=== PATIENT | female | born 1955 | race African-American/Black ===

== ENCOUNTER 2017-10-22 18:14 | Emergency (ER) | payer SELFPAY ==
[~2017-10-22] VITALS: Ht 157.5 cm; Wt 55.0 kg
[~2017-10-22 18:14] MED LIST: DICL75 PO; GLUCTAB OR; TRAM50 PO; VASE1025 PO
[2017-10-22 18:16] VITALS: BP 225/129; PULSE 97; RESP 18; TEMP 98.3; O2SAT 99
--- NOTE | 2017-10-22 18:29 | PD ---
HPI Chief Complaint: Allergic/Adverse Reaction Time Seen by Provider: 18:28 Travel History International Travel<30 days: No Contact w/Intl Traveler<30days: No Traveled to known affect area: No History of Present Illness HPI 62-year-old female came to the emergency room with history of swelling of her lips that started 2 hours ago. Patient says that she has had something like this in the past but it won't go away. This time it was getting worse and hence she came to the emergency room. Patient is not having any respiratory distress. Vital signs otherwise stable. Patient is on this and a pill for blood pressure. Patient was hypertensive in triage. [facility] Past Medical History Narrative Medical List of her past medical, surgical, social and family history is reviewed from the nursing note. Diabetes: Yes Hypertension: Yes Social History Tobacco Use: Yes Allergies-Medications (Allergen,Severity, Reaction): Coded Allergies: penicillin G (Verified Allergy, Severe, rash, 10/22/17) Comments List of her allergies reviewed from the nursing note. Reported Meds & Prescriptions Reported Meds & Active Scripts Active Prednisone 20 Mg Tab 40 Mg PO DAILY Take 40 mg (2 tablets) daily for 5 days Reported Metformin (Metformin HCl) 500 Mg Tab 500 Mg PO BIDPC Lisinopril 20 Mg Tab 20 Mg PO DAILY Narrative Medication List of her home medications reviewed from the nursing note. Review of Systems Except as stated in HPI: all other systems reviewed are Neg Physical Exam Narrative GENERAL: Awake, alert, no obvious distress SKIN: Focused skin assessment warm/dry. HEAD: Atraumatic. Normocephalic. EYES: Pupils equal and round. No scleral icterus. No injection or drainage. ENT: No nasal bleeding or discharge. Mucous membranes pink and moist. Upper lip is swollen/angioedema. Tongue and pharynx appears to be normal NECK: Trachea midline. No JVD. CARDIOVASCULAR: Regular rate and rhythm. No murmur appreciated. RESPIRATORY: No accessory muscle use. Clear to auscultation. Breath sounds equal bilaterally. GASTROINTESTINAL: Abdomen soft, non-tender, nondistended. Hepatic and splenic margins not palpable. MUSCULOSKELETAL: No obvious deformities. No clubbing. No cyanosis. No edema. NEUROLOGICAL: Awake and alert. No obvious cranial nerve deficits. Motor grossly within normal limits. Normal speech. PSYCHIATRIC: Appropriate mood and affect; insight and judgment normal. Data Data Last Documented VS Vital Signs Date Time Temp Pulse Resp B/P (MAP) Pulse Ox O2 Delivery O2 Flow Rate FiO2 10/22/17 23:07 10/22/17 18:55 94 17 99 Room Air 10/22/17 18:16 98.3 Orders Orders Ecg Monitoring (10/22/17 18:32) Iv Access Insert/Monitor (10/22/17 18:32) Oximetry (10/22/17 18:32) Diphenhydramine Inj (Benadryl Inj) (10/22/17 18:45) Methylprednisolone So Succ Inj (Solumedr (10/22/17 18:45) Famotidine Inj (Pepcid Inj) (10/22/17 18:45) Sodium Chloride 0.9% Flush (Ns Flush) (10/22/17 18:45) Epinephrine (1:1000) Inj (Adrenalin (1:1 (10/22/17 18:45) Clonidine (Catapres) (10/22/17 19:00) Ed Discharge Order (10/22/17 22:58) MDM Medical Decision Making Medical Screen Exam Complete: Yes Emergency Medical Condition: Yes Medical Record Reviewed: Yes Differential Diagnosis Angioedema, anaphylactoid reaction Narrative Course 6:51 PM patient has been given medications for the anaphylactic reaction including IV Solu-Medrol, IV Benadryl, IV famotidine and subcutaneous epinephrine. Current blood pressure is 200 systolic. I will give her a few clonidine as well. Patient has been signed over to the oncoming ER physician for continued observation. Procedures EKG Prior to Arrival: No Diagnosis Primary Impression: Anaphylactoid reaction Qualified Codes: T78.2XXA - Anaphylactic shock, unspecified, initial encounter Scripts Prednisone (Prednisone) 20 Mg Tab 40 MG PO DAILY, #10 TAB 0 Refills Take 40 mg (2 tablets) daily for 5 days Prov: Suri Davis MD 10/22/17 Nadia Koroma MD Oct 22, 2017 18:29
[2017-10-22] MEDS ORDERED: LISI-515 PO (18:39)
[2017-10-22] MEDS ORDERED: METF500T PO (18:40)
[2017-10-22 18:45] VITALS: RESP 17; O2SAT 98
[2017-10-22] MEDS ORDERED: SODIUM CHLORIDE 0.9% FLUSH 10 ML FLUSH IV FLUSH PRN (18:45)
[2017-10-22] MEDS ORDERED: diphenhydrAMINE HCL 50 MG/ML VIAL IVP ONE (18:45)
[2017-10-22] MEDS ORDERED: FAMOTIDINE 20 MG/2 ML VIAL IV PUSH ONE (18:45)
[2017-10-22] MEDS ORDERED: methylPREDNISolone SOD SUCC 125 MG/2 ML VIAL IM ONE (18:45)
[2017-10-22] MEDS ORDERED: EPINEPHrine HCL (1:1000) 1 MG/ML VIAL IM ONE (18:45)
[2017-10-22 18:55] VITALS: BP 210/110; PULSE 94; RESP 17; O2SAT 99
[2017-10-22] MEDS ORDERED: cloNIDine HCL 0.1 MG TAB PO ONE (19:00)
--- NOTE | 2017-10-22 22:48 | PD ---
Physical Exam Narrative GENERAL: 62 y/o female in no apparent distress SKIN: Focused skin assessment warm/dry. HEAD: Normocephalic. EYES: Pupils equal and round. No scleral icterus. No injection or drainage. ENT: No nasal bleeding or discharge. Mucous membranes pink and moist. swelling to upper lip noted NECK: Trachea midline. CARDIOVASCULAR: Regular rate and rhythm. RESPIRATORY: No accessory muscle use. MUSCULOSKELETAL: No obvious deformities. NEUROLOGICAL: Awake and alert. Motor grossly within normal limits. Normal speech. PSYCHIATRIC: Appropriate mood and affect; insight and judgment normal. Data Data Last Documented VS Vital Signs Date Time Temp Pulse Resp B/P (MAP) Pulse Ox O2 Delivery O2 Flow Rate FiO2 10/22/17 18:55 94 17 210/110 (143) 99 Room Air 10/22/17 18:16 98.3 Orders Orders Ecg Monitoring (10/22/17 18:32) Iv Access Insert/Monitor (10/22/17 18:32) Oximetry (10/22/17 18:32) Diphenhydramine Inj (Benadryl Inj) (10/22/17 18:45) Methylprednisolone So Succ Inj (Solumedr (10/22/17 18:45) Famotidine Inj (Pepcid Inj) (10/22/17 18:45) Sodium Chloride 0.9% Flush (Ns Flush) (10/22/17 18:45) Epinephrine (1:1000) Inj (Adrenalin (1:1 (10/22/17 18:45) Clonidine (Catapres) (10/22/17 19:00) Complete Blood Count With Diff (10/22/17 19:23) Basic Metabolic Panel (Bmp) (10/22/17 19:23) Ed Discharge Order (10/22/17 22:58) [facility] Supervised Visit with JUDY: No Narrative Course signed over to me to recheck 4 hours after epi, patient still with significant swelling to her upper lip. Recommend observation in the hospital overnight. patient wants to leave ama AMA: The risks of leaving against medical advice without further evaluation treatment were discussed with the patient. These risks include cardiac dysfunction, cardiac dysrhythmia, possible heart attack, possible stroke or . The patient indicated understanding of these risks and appeared to have the capacity to make this decision. Diagnosis Primary Impression: Lip swelling Patient Instructions: General Instructions Additional Instruction: Stop lisinopril, benadryl at home every 6 hours as needed, follow with primary tommorrow Med/Other Pt SpecificInfo: Existing Med Changed (stop lisinopril) Scripts Prednisone (Prednisone) 20 Mg Tab 40 MG PO DAILY, #10 TAB 0 Refills Take 40 mg (2 tablets) daily for 5 days Prov: Suri Davis MD 10/22/17 Disposition: 01 DISCHARGE HOME Condition: Stable Suri Davis MD Oct 22, 2017 22:48
[2017-10-22] MEDS ORDERED: PRED20 PO (22:59)
== END 2017-10-22 23:50 | disposition home or self-care (01) ==
LOC: NEPC 18:14
DX: T78.2XXA Anaphylactic shock, unspecified, initial encounter (principal); R22.0 Localized swelling, mass and lump, head; I10 Essential (primary) hypertension; E11.9 Type 2 diabetes mellitus without complications; Z72.0 Tobacco use; Z88.0 Allergy status to penicillin; Z79.84 Long term (current) use of oral hypoglycemic drugs; Z79.899 Other long term (current) drug therapy
CPT/HCPCS: 96372; 96374; 96375; 99284; J0171; J1200; J2930